=== PATIENT | female | born 1950 ===

== ENCOUNTER 2017-03-12 14:19 | Emergency (ER) | payer OTHER, MEDICARE ==
[2017-03-12 14:20] VITALS: BMI 41.1
[2017-03-12 14:49] VITALS: BP 128/59; PULSE 80; RESP 18; TEMP 97.1; O2SAT 99
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
== END 2017-03-12 17:15 | disposition home or self-care (01) ==
LOC: H.ER 14:19
DX: M51.37 Other intervertebral disc degeneration, lumbosacral region (principal); M54.9 Dorsalgia, unspecified; V43.52XA Car driver injured in collision with other type car in traffic accident, initial encounter; Y93.9 Activity, unspecified; E11.9 Type 2 diabetes mellitus without complications; I10 Essential (primary) hypertension; J45.909 Unspecified asthma, uncomplicated; Z87.891 Personal history of nicotine dependence